=== PATIENT | female | born 1975 | race Hispanic/Latino ===

== ENCOUNTER 2017-07-01 02:23 | Inpatient (IN) | payer SELFPAY ==
[2017-07-01] MEDS ORDERED: Ketorolac Tromethamine 60 MG/2 ML VIAL ONE (02:45)
[2017-07-01] MEDS ORDERED: HYDROcodone/Acetaminophen 5/325 mg Tablet ONE (02:45)
[2017-07-01 03:50] LABS: #Basophils 0.1 thou/uL (0.0-0.2); #Eosinphils 0.2 thou/uL (0.0-0.7); #Lymphocytes 3.9 thou/uL (1.20-3.40); #Monocytes 0.8 thou/uL (0.11-0.59); #Neutrophils 8.6 thou/uL (1.40-6.50); %Basophils 0.8 % (0.0-1.0); %Eosinophils 1.5 % (0.0-10.0); %Lymphocytes 28.5 % (21.0-51.0); %Monocytes 6.2 % (0.0-10.0); Mean Corpuscular HGB CONC 32.5 g/dL (32.0-36.0); Mean Corpuscular Hemoglobin 31.4 pg (27.0-31.0); Mean Corpuscular Volume 96.7 fl (81.0-99.0); Mean Platelet Volume 9.5 fL (7.4-10.4); Platelet Count 207 thou/uL (130-400); RBC Distribution Width 13.6 % (11.5-14.5); Red Blood Cell (RBC) Count 3.83 mill/uL (4.20-5.40); White Blood Cell (WBC) Count 13.6 thou/uL (4.8-10.8)
[2017-07-01 04:11] LABS: ALT (SGPT) 55 U/L (8-55); AST (SGOT) 68 U/L (5-34); Albumin 3.4 g/dL (3.5-5.0); Alcohol 198 mg/dL (Less than 10); Alkaline Phosphatase 60 U/L (40-150); Anion Gap 13 mmol/L (10-20); BUN (Urea Nitrogen) 12 mg/dL (7.0-18.7); Bilirubin, Total 0.2 mg/dL (0.2-1.2); Calc. Creatinine Clearance 0 mL/min (70-130); Calcium 8.2 mg/dL (7.8-10.44); Carbon Dioxide 17 mmol/L (22-29); Chloride 110 mmol/L (98-107); Estimated GFR-MDRD 80; Glucose 139 mg/dL (70-105); Potassium 3.6 mmol/L (3.5-5.1); Protein, Total 6.4 g/dL (6.0-8.3); Sodium 136 mmol/L (136-145)
[2017-07-01] MEDS ORDERED: Sodium Chloride 0.9% 1,000 ML IV SCH (05:18)
[2017-07-01] MEDS ORDERED: Dextrose 5% in Water 1,000 ML IV PRN (05:19)
[2017-07-01] MEDS ORDERED: Ondansetron HCl/PF 4 MG/2 ML Vial IVP PRN (05:19)
[2017-07-01] MEDS ORDERED: Dextrose 50% Abboject 50 ML SYRINGE SLOW IVP PRN (05:19)
[2017-07-01] MEDS ORDERED: Ondansetron ODT 4 MG TAB PO PRN (05:19)
[2017-07-01] MEDS ORDERED: hydrALAZINE 20 MG/ML VIAL SLOW IVP PRN (05:19)
[2017-07-01] MEDS ORDERED: Promethazine HCl 25 MG/ML VIAL IM PRN (05:19)
[2017-07-01] MEDS: Oxazepam 10 MG CAP PO SCH ×4 (05:41→23:56)
[2017-07-01] MEDS: Ketorolac Tromethamine 30 MG/ML VIAL IVP SCH ×4 (05:41→23:56)
[2017-07-01] MEDS: Morphine 4 MG/ML Carpuject SLOW IVP PRN ×4 (05:42→21:30)
[2017-07-01] MEDS: Sodium Chloride 0.9% 1,000 ML IV SCH ×2 (05:43→15:04)
[2017-07-01 07:56] VITALS: BMI 29.9
[2017-07-01] MEDS ORDERED: HYDROcodone/Acetaminophen 10/325 mg Tablet PO PRN (07:57)
--- NOTE | 2017-07-01 08:08 | HP ---
DATE OF ADMISSION: 07/01/2017 ATTENDING PHYSICIAN: Dr. Ng. CONSULTING PHYSICIAN: Dr. Katz. CHIEF COMPLAINT: Evaluation status post fall. HISTORY OF PRESENT ILLNESS: This is a 41-year-old female who was heavily intoxicated, presents to [facility] ED with complaint of left arm pain, she stated that she fell down from the stairs probably 10 minut es ago and then fell onto concrete on the left elbow. Patient reported left elbow pain, reported hea vily intoxicated alcohol use this evening. Unknown LOC, does appear to have some ecchymosis in the p eriorbital region on the right eye. PAST MEDICAL HISTORY: She denies any current medical history. PAST SURGICAL HISTORY: Includes tubal ligation, appendectomy, cholecystectomy, tonsillectomy. PSYCH HISTORY: None diagnosed at this time. SOCIAL HISTORY: She does use tobacco, smokes cigarettes daily 1 pack per day. She reports heavy alc ohol use on weekends, but none during the week. She denies any drug use. REVIEW OF SYSTEMS: All 10 systems reviewed otherwise stated in HPI were negative. PHYSICAL EXAMINATION: VITAL SIGNS: Blood pressure 129/82, heart rate 105, respiratory rate 18, 95% on room air. HEENT: Atraumatic, normocephalic. There appeared to be periorbital right-sided ecchymosis. No scal p hematoma noted. Pupils are 3 mm bilaterally and equal. NECK: No JVD, no masses. Trachea is midline. Cervical spine is nontender. RESPIRATORY: Clear bilaterally via auscultation. CARDIOVASCULAR: S1, S2, regular rate and rhythm. ABDOMEN: Soft, nontender, nondistended. BACK: Unremarkable. EXTREMITIES: Left upper extremity, left distal humerus tenderness, radial head tenderness, no obviou s deformity at this time. Upon my exam, the left upper extremity was already splinted, right upper e xtremity is limited injury, bilateral lower extremities removing without injury. Positive pulses kenton aterally. No edema. NEURO: GCS of . SKIN: Warm and dry. LABORATORY DATA: Laboratories findings are pending. RADIOLOGIC FINDINGS: Supracondylar fracture, comminuted. ASSESSMENT AND PLAN: 1. Status post fall from a supracondylar fracture. 2. Acute traumatic pain. Plan will be observation to the surgical floor for pain management, evaluation for orthopedic treatme nt. Remainder n.p.o. at this time with some ice chips and then some small sips of water. She will c ontinue IV fluids, pain management, DOA signs of withdrawal. Initiate DVT and gastritis prophylaxis when appropriate. Dr. Katz will be contacted and asked to see this patient as well. Dr. Ng has been notified and agrees with the above plan.
--- NOTE | 2017-07-01 08:20 | CON ---
DATE OF CONSULTATION: 07/01/2017 CONSULTING PHYSICIAN: Dr. Bon Katz HISTORY: We were asked by Trauma in the ER to see the patient. The patient had her first bout of ET OH use ever last night. Unfortunately, fell landing on her left elbow and causing a significant disp laced comminuted fracture. The patient in a substantial amount of pain, but denies any numbness, tin gling further down the arm. She also has some ecchymosis about the right eye, but otherwise is doing okay. Dr. Katz and I looked at the images this morning and I informed the patient we need to ge t a CAT scan for better anatomical views of the bone for repair. The patient understands. The patie nt otherwise states she is healthy and has no chronic health issues. PAST MEDICAL HISTORY: Healthy. PAST SURGICAL HISTORY: Tubal ligation, appendectomy, tonsils and cholecystectomy. SOCIAL HISTORY: Smokes approximately a pack a day. Denies alcohol use until last night. No drug us e. Family is in the room. CURRENT MEDICATIONS: None. ALLERGIES: No known drug allergies. REVIEW OF SYSTEMS: Healthy just complains of significant left elbow pain. PHYSICAL EXAMINATION: GENERAL: Well-nourished female resting in bed in no acute distress, family at bedside. Speech clear . Answers questions appropriately, is alert and oriented x3. HEENT: Some ecchymosis about the right eye, but is able to open eye fully. Both eyes tracking well. No visual discrepancy complaints. NECK: Supple. Trachea midline. EXTREMITIES: Right upper extremity normal findings. Left upper extremity is splinted, but she is ab le to move her fingers and has good sensations all of her digits, warm to the touch. Cap refill is q uite to both upper extremities. Moving that upper arm, though, it does cause her a significant amoun t of pain even though it is splinted and she is in a sling. Lower extremity exam, no positive findin gs. ASSESSMENT: Left elbow fracture, comminuted. PLAN: I spoke with patient. We will get her consented for surgery tomorrow. Dr. Katz would like a CAT scan of the elbow. Once that is completed, we will formulate a surgical plan for patient. Brandy blank knows the risks and benefits as I have explained them for an ORIF of left elbow and she has given v erbal authorization to go forth with that surgery. We will let her eat today and plan on doing surge ry tomorrow. Changed her pain medications around a little bit, get some ice on that arm, keep her ar m in a sling.
--- NOTE | 2017-07-01 08:34 | RAD ---
LEFT ELBOW 2 VIEWS: Date: 07/01/17 HISTORY: 41-year-old female with left elbow fracture following reduction with splint material. FINDINGS: Limited 2 view study demonstrates a very markedly comminuted, very markedly displaced fracture of the distal humerus, with severe dorsal displacement and overriding of the major distal humerus fracture fragments, with worse displacement and overriding when compared to the prereduction study of 07/01/17 . IMPRESSION: Severely displaced, malaligned, comminuted distal humeral fracture with marked posterior displacement and foreshortening of the major distal humeral fracture fragments, worse than on the prereduction st udy. POS: [facility]
--- NOTE | 2017-07-01 08:36 | RAD ---
LEFT ELBOW 2 VIEWS: Date: 07/01/17 HISTORY: 41-year-old female with left elbow injury following a fall. FINDINGS: There is a very severely comminuted, displaced, malaligned fracture of the distal humerus with marked dorsal angulation and dorsal displacement and foreshortening of the major distal fragments, particul stew the more medial component, with severe overriding and malalignment. IMPRESSION: Marked displaced, angulated, comminuted distal humeral fracture. POS: [facility]
--- NOTE | 2017-07-01 08:50 | PRG ---
DATE OF SERVICE: 07/01/2017 Please see Chepe Rodriguez's note for full details. SUBJECTIVE: Briefly, Ms. Cannon had a fall and left elbow fracture, partially reduced in the emergen cy room. She is going to be seen by the Orthopedic Service for definitive management today. PHYSICAL EXAMINATION: GENERAL: No acute distress. VITAL SIGNS: Afebrile, vital signs are stable. ABDOMEN: Soft. CHEST: Clear. ASSESSMENT: Left elbow fracture. PLAN: Per Ortho.
[2017-07-01] MEDS: Thiamine HCl 200 MG/2 ML VIAL SLOW IVP SCH (09:09)
[2017-07-01] MEDS: Folic Acid 1 MG TAB PO SCH (09:09)
[2017-07-01] MEDS: Famotidine/PF 20 mg/2ml Vial SLOW IVP SCH ×2 (09:10→21:20)
--- NOTE | 2017-07-01 09:21 | CT ---
PRELIMINARY REPORT/[facility]/EMERGENCY AFTER HOURS PROCEDURE: EXAM: CT Head Without Intravenous Contrast CLINICAL HISTORY: 41 years old, female; Injury or trauma; Fall; Initial encounter; Abrasion; Forehead; Patient HX: Er 9 ; 41 yo f pt states she fell down stairs x10 minutes ago and fell onto concrete on l elbow. Reports E FRITZ марина; Additional info: *pt uncooperative for exam TECHNIQUE: Axial computed tomography images of the head/brain without intravenous contrast. COMPARISON: No relevant prior studies available. FINDINGS: No definite acute skull fracture. Included paranasal sinuses are essentially clear. No acute intracranial hemorrhage or mass effect. Ventricle size is normal for age. No definite acute infarct by CT. IMPRESSION: No acute intracranial bleed or mass effect. Thank you for allowing us to participate in the care of your patient. Dictated and Authenticated by: Sebastien Steve MD 07/01/2017 4:56 AM Central Time ([place] & [place]) FINAL REPORT EMERGENCY AFTER HOURS BRAIN CT WITHOUT IV CONTRAST: Date: 07/01/17 Time: 0411 hours COMPARISON: 10/14/07. IMPRESSION: No acute intracranial process. No mass or bleed. Minimal motion artifact. Report in agreement with preliminary report given on-call by Sonny. POS: [facility]
--- NOTE | 2017-07-01 10:13 | CT ---
LEFT ELBOW CT SCAN WITHOUT IV CONTRAST: Date: 07/01/17 HISTORY: 41-year-old female for left elbow fracture evaluation. COMPARISON: Plain film examination from 07/01/17. FINDINGS: There is an extensively comminuted distal humeral fracture involving the distal humeral metaphysis wi th extension into the elbow joint with a central vertical component. There is extensive comminution. There is marked posterior displacement, malalignment, and foreshortening of the major distal fragment /fragments, including a prominent medial sided fragment extending cranially. No radial or ulnar dislo cation. IMPRESSION: Extensively posteriorly displaced and foreshortening comminuted fracture of the distal humeral metadi aphysis with vertical extension into the elbow joint. POS: [facility]
--- NOTE | 2017-07-01 13:29 | CON ---
DATE OF CONSULTATION: 07/01/2017 CHIEF COMPLAINT: Left elbow pain. HISTORY OF PRESENT ILLNESS: Ms. 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 The patient had a fall and a fracture, was see n by Thom Stein, my PA as well as admitted by Trauma overnight. The patient has a left femoral f racture. I saw the patient at bedside. History as per preHPI and Thom Stein. PHYSICAL EXAMINATION: The patient had a splint clean, dry, and intact. She is sensate intact with b risk cap refill. She has got motion intact to AI, PI and median, ulnar, and radial distributions. S ensation is intact in radial distribution. The patient has no significant bruising and CT scan shows a comminuted intra-articular distal humerus fracture of left elbow with intercondylar split and some comminution noted what appears to be capitellum with comminution on the medial and lateral column. IMPRESSION: Left intercondylar supracondylar humerus fracture. ASSESSMENT AND PLAN: I discussed with the patient that likely we would need to perform open reductio n internal fixation of her left elbow. I discussed the potential need for olecranon osteotomy to exp ose the joint and get the best anatomic reduction. I discussed the risks and benefits of surgery to include pain, scar, bleeding, infection, damage to vital structures, decreased range of motion or str ength, failure of procedure, continued pain despite surgical intervention. The patient understood th baudilio risks. She understands the risk of nonunion, malunion. She understands that she needs to stop s moking, which we discussed to improve her outcome of healing as well as the overall range of motion. I discussed she will be stiff after this surgery. I discussed the risk of damage to nerves. The pat misa understands this. We will plan to proceed with surgery tomorrow morning after she recovered fro m dehydration from alcohol intoxication.
[2017-07-02] MEDS: Sodium Chloride 0.9% 1,000 ML IV SCH ×3 (00:03→18:24)
[2017-07-02] MEDS: Ketorolac Tromethamine 30 MG/ML VIAL IVP SCH ×3 (05:58→18:24)
[2017-07-02] MEDS: Oxazepam 10 MG CAP PO SCH ×3 (06:03→18:25)
[2017-07-02] MEDS ORDERED: Midazolam HCl 2 mg/2 ml Vial ONE (07:51)
[2017-07-02] MEDS ORDERED: Fentanyl 100 MCG/2 ML VIAL ONE ×3 (07:51→13:01)
[2017-07-02] MEDS ORDERED: CEFAZOLIN/Water 2 GM/20 ML SYRINGE ONE (07:55)
[2017-07-02] MEDS: Famotidine/PF 20 mg/2ml Vial SLOW IVP SCH (08:18)
[2017-07-02] MEDS: Folic Acid 1 MG TAB PO SCH (08:18)
[2017-07-02] MEDS: Thiamine HCl 200 MG/2 ML VIAL SLOW IVP SCH (08:19)
[2017-07-02] MEDS ORDERED: Promethazine HCl 25 MG/ML VIAL SLOW IVP PRN (12:37)
[2017-07-02] MEDS ORDERED: Promethazine HCl 25 MG/ML VIAL IM PRN (12:37)
[2017-07-02] MEDS ORDERED: Ondansetron HCl/PF 4 MG/2 ML Vial IVP PRN (12:37)
--- NOTE | 2017-07-02 12:57 | RAD ---
LEFT ELBOW: Date: 07/02/17 HISTORY: 41-year-old female status post open reduction and internal fixation left elbow. FINDINGS: Multiple (5) portable fluoroscopic spot images are presented for interpretation. There are medial and lateral metal plate and screws stabilizing the markedly comminuted and displaced distal humeral frac ture. There is also internal fixation screw stabilizing the ulna/olecranon region. Marked improvement in position and alignment of the comminuted distal humeral fracture fragments when compared to the p rior study. IMPRESSION: Prominent metal plate and screws stabilizing the medial and lateral aspect of the distal humeral kenton edly comminuted and displaced fracture with marked improvement in position and alignment. Internal fi xation screw stabilizing the olecranon of the ulna. POS: [facility]
[2017-07-02] MEDS ORDERED: CEFAZOLIN 2 GM in Sodium Chloride 0.9% 100 ML IVPB SCH (14:00)
[2017-07-02] MEDS: Morphine 4 MG/ML Carpuject SLOW IVP PRN (14:08)
[2017-07-02] MEDS ORDERED: Ondansetron HCl/PF 4 MG/2 ML Vial ONE (14:30)
[2017-07-02] MEDS ORDERED: Lidocaine 1% PF 5 ML VIAL ONE (14:30)
[2017-07-02] MEDS ORDERED: PROPOFOL 200 MG/20 ML VIAL ONE (14:30)
[2017-07-02] MEDS ORDERED: diphenhydrAMINE 50 MG/ML VIAL ONE (14:30)
[2017-07-02] MEDS ORDERED: Dexamethasone 20 MG/5 ML VIAL ONE (14:30)
[2017-07-02] MEDS: CEFAZOLIN/Water 2 GM/20 ML SYRINGE SLOW IVP SCH (16:15)
[2017-07-02] MEDS: HYDROcodone/Acetaminophen 10/325 mg Tablet PO PRN ×2 (16:15→21:01)
--- NOTE | 2017-07-02 19:33 | PRG ---
DATE OF SERVICE: 07/02/2017 ATTENDING PHYSICIAN: Dr. Praveen Ng. SUBJECTIVE: Ms. Cannon is a 41-year-old female who had a fall and sustained a left elbow fracture. She was seen this afternoon on returning from the OR, status post ORIF of left elbow fracture. Pain is controlled with oral analgesia. OBJECTIVE: VITAL SIGNS: Temperature 97.7, pulse 66, respirations 18, O2 saturation 98% room air, blood pressure 155/85. GENERAL: A 41-year-old female sitting up in bed, in no acute distress. PULMONARY: Bilateral breath sounds clear. No respiratory distress. CARDIOVASCULAR: Heart sounds normal. Regular rate and rhythm. ABDOMEN: Soft, nontender, nondistended. EXTREMITIES: Left upper extremity with splint. Neurovascularly intact. Cap refill brisk. No trauma noted. NEUROLOGIC: GCS 15, awake, alert, oriented x3. ASSESSMENT: 1. Status post ground level fall. 2. Status post open reduction internal fixation left elbow fracture. PLAN: 1. Continue current care as ordered. 2. Continue oral analgesia. 3. IV antibiotics per Orthopedic Service. 4. Anticipate home in a.m. as long as pain stays well controlled. 5. Pepcid for PUD prophylaxis. The patient was reviewed with Dr. Ng, attending surgeon, who agrees with the assessment and plan. MTDD
[2017-07-02] MEDS: Famotidine 20 MG TAB PO SCH (21:06)
[2017-07-02] MEDS: Ibuprofen 600 MG TAB PO PRN (22:08)
--- NOTE | 2017-07-02 22:15 | OP ---
DATE OF PROCEDURE: 07/02/2017 PREOPERATIVE DIAGNOSES: Left distal humerus fracture with an intercondylar split in-between the capitellum and trochlea with comminution in the metaphysis near the olecranon coronoid fossa. POSTOPERATIVE DIAGNOSES: Left distal humerus fracture with an intercondylar split in-between the capitellum and trochlea with comminution in the metaphysis near the olecranon coronoid fossa. PROCEDURES PERFORMED: 1. Open reduction distal humerus fracture with intercondylar split. 2. Olecranon osteotomy. 3. Ulnar nerve transposition. 4. Long arm splint STAFF: Bon Katz M.D. [employer]2EE ANDROID DEVELOPER: Thom Stein PA-C ANESTHESIA: General endotracheal intubation. ESTIMATED BLOOD LOSS: 100 mL TOURNIQUET TIME: 127 minutes at 250 mmHg. The patient had 1900 mL of IV fluids in and 200 cc UOP IMPLANTS: VA-LCP 4-hole long plate and a 2.7/3.5 LCP 5-hole long medial and lateral plates. The patient had six 3.5 screws implanted. The patient had one 6.5 screw that was in and out. The patient had a washer. She had 7 total of 2.7 screws implanted and had a 19 mm x 6.5 mm cannulated screw inserted, and Synthes implants. COMPLICATIONS: None. HISTORY OF PRESENT ILLNESS: Ms. Cannon is a 41-year-old female who presented to me after she became intoxicated and falling breaking her distal humerus. I discussed with the patient severity of this injury. I discussed with patient the risks and benefits of surgery to include pain, scar, bleeding, infection, damage to vital structures, decreased range of motion or strength, failure of procedure and continued pain despite surgical intervention, arthritis, infection , heterotopic ossification, damage to nerves, arteries and tendons, failure of the procedure, continued pain, nonunion, malunion, need for further surgeries, loss of life or limb. The patient understood the risks and benefits and elected to proceed. DESCRIPTION OF PROCEDURE: Time out was performed designating the patient's left upper extremity as the operative site based on site, consents, and markings. After completion of timeout, the patient had been placed in lateral decubitus position with her bony prominences well padded. The patient had a Jenkins placed. The patient's arm was rolled over onto a bump and we exposed her x -ray guidance. We then made a posterior midline incision down through skin, created skin flaps medially and laterally. At first, we found the ulnar nerve finding the plane of the triceps and came down exposed the ulnar nerve and released it through the fascia distally of the FCU. I then exposed the medial aspect of the humerus and came down on bone and elevating posteriorly to help expose the patient's medial epicondyle for placement of the plate. We then moved laterally and found the epicondyle and anconeus split and came down through the anconeus split, started palpate down to the triceps through we developed a plane and found our subtricipital plane, came across proximally to distally. We opened up and we bluntly dissected the patient's proximal to distal plain using blunt dissection proximally, staying out of bone to ensure no damage to the patient's posterior interosseous nerve. I exposed both medial and lateral columns. I attempted at first reduction and pinning, but there was an area of some comminution, but because the comminution was small, little pieces, it could not be perfectly felt that an osteotomy perform. Therefore, under fluoroscopic guidance, we found what appeared to be a bare spot, and we drilled and put a guidewire for six 3 screws down the ulna. With AP and lateral radiographs, we then tapped, removed and we made ostomy cut and I then tried to do wedge osteotomy for osteotomy cut. We then took an anconeus flap, connected to the triceps laterally and exposed down to the distal humerus. We also capsular tissues medially leaving a space for sewing over and if needed leave the nerve back in the screw. We then exposed the distal humerus completely. We started by attaching the capitellum and trochlea pieces together with a point to point reduction. We placed a guidewire across the spool. We then reduced that to a medial fragment that we had positioned into place and used the lateral fragment to help and find our positioning. I felt we had placed several guidewires to pin it into place, but ultimately had used our lateral plate to help with positioning of our humerus. After we pinned into place and clamped across, we placed 4 guidewires into the lateral column. We then used this in the medial guide reference to place our medial clamp and medial plate and placed guidewires across it. I had placed one screw 3.5 in the shaft of the lateral plate and hold it into place, keep it stable before I place the medial plate down. With this, I ensured with C-arm radiograph the positioning of the plate and screws. I then sequentially placed screws medial and lateral through the intercondylar split distally, obliquely trying to stay out of the articular surface checking both visually as well as under radiographic visualization to ensure the screws were out of the joint. We removed the thread and has reimplant and remove hardware removal set. Being happy with a total of 3 long screws laterally, 2 long screws medially, and 1 small screw, we then elected to move to our proximal shaft. We placed 3 screws alternating proximally to help the interdigitate some into the plate from medial and lateral. We protect the radial nerve as well the ulnar nerve during our dissection. Being happy with the look, we removed the remainder of the K- wires. I took pictures under AP and lateral radiographs that showed nice arc of motion, full flexion, full extension. I was happy with the position in the plate. I then washed. We put a guidewire for 6.5 screw. We had already tapped the washer and compressed the fracture and put the olecranon osteotomy into place. We then sewed the anconeus flap down back into its place with 0 Vicryl, closed the lateral soft tissues of the plate with 0 Vicryl. We removed and closed up the interval paying attention the superficial nerve branch to the radial nerve. We then just only getting fascia. We then moved medially. We transposed the patient's medially. We reapproximated all the tissues and the nerve was tenting on the plate and I did not like the position of the nerve, so therefore, I made a subcutaneous plane in the fat. I used the fat to cover over the remainder of the plate and made sure the FCU was released and all the fascia was released, so that the nerve would fit anterior to the epicondyle in a fat plane. I then closed the skin with 2-0 marnie. The patient was placed in a posterior splint. The patient will be admitted back to the hospital, will be discharged home today if her pain is controlled. The patient received a block once exam was performed. PHILOMENA
[2017-07-03] MEDS: Oxazepam 10 MG CAP PO SCH ×2 (00:41→06:11)
[2017-07-03] MEDS: CEFAZOLIN/Water 2 GM/20 ML SYRINGE SLOW IVP SCH (00:41)
[2017-07-03] MEDS: HYDROcodone/Acetaminophen 10/325 mg Tablet PO PRN ×3 (00:51→10:57)
[2017-07-03] MEDS: Ibuprofen 600 MG TAB PO PRN (09:40)
[2017-07-03] MEDS: Folic Acid 1 MG TAB PO SCH (09:40)
[2017-07-03] MEDS: Famotidine 20 MG TAB PO SCH (09:40)
[2017-07-03 11:35] VITALS: BP 128/83; TEMP 98
--- NOTE | 2017-07-03 16:12 | DIS ---
DATE OF ADMISSION: 07/01/2017 DATE OF DISCHARGE: 07/03/2017 ADMITTING PHYSICIAN: Dr. Sebastien Ng. CONSULTING PHYSICIAN: Dr. Bon Katz, Orthopedics REASON FOR HOSPITALIZATION: Ground level fall with left elbow pain. HOSPITAL DIAGNOSES: 1. Left elbow fracture, comminuted. 2. Acute alcohol intoxication. PROCEDURES: Date; 07/02/2017. Surgeon; Dr. Bon Katz. Procedures; ORIF distal humerus fracture. Please refer to Dr. Katz's complete operative note for details. BRIEF HISTORY OF HOSPITALIZATION: The patient is a 41-year-old female who apparently was in an intoxicated state when she had a fall landing on her left elbow. She also sustained a contusion to her right orbital area. She was transported to [facility] where a left comminuted elbow fracture was identified. She was admitted to the hospital by Trauma Services. Dr. Katz, Orthopedics, was consulted. He took the patient to the OR for ORIF of the left elbow. The following day, the patient was tolerating a regular diet. She was mobile with physical and occupational therapy. She was evaluated by Social Work to ensure safe DC plan. She may follow up with Dr. Katz. There is no need for her to follow up with Trauma Services. She was given follow up information, discharge instructions, and return precautions. The patient was seen and examined with Dr. Powell, attending trauma surgeon, who agrees with assessment and plan for discharge. PHILOMENA
--- NOTE | 2017-07-15 19:59 | EKG ---
Test Reason : Blood Pressure : / mmHG Vent. Rate : 110 BPM Atrial Rate : 110 BPM P-R Int : 158 ms QRS Dur : 090 ms QT Int : 360 ms P-R-T Axes : 061 019 055 degrees QTc Int : 487 ms Sinus tachycardia Otherwise normal ECG Confirmed by TRINITY MOLINA, ADAL Christensen ([id number]), web editor MIGUEL SOLOMON ([id number]) on 07/15/2017 7:59:01 PM Referred By: TRINITY Confirmed By:ADAL PETERSEN MD
== END 2017-07-03 12:38 | disposition home or self-care (01) | DRG 494 ==
LOC: ERS 02:23 → SURG A 04:25 → EEVIPCON 04:25 → OBSVTOIN 04:25
PROVIDERS: ADMIT Surgery; ATTEND Surgery
PROC: 0PSG04Z Reposition Left Humeral Shaft with Internal Fixation Device, Open Approach (ICD-10-PCS; principal; 2017-07-02)
PROC: 01S40ZZ Reposition Ulnar Nerve, Open Approach (ICD-10-PCS; 2017-07-02)
DX: S42.492A Other displaced fracture of lower end of left humerus, initial encounter for closed fracture (principal); F10.129 Alcohol abuse with intoxication, unspecified; F17.210 Nicotine dependence, cigarettes, uncomplicated; S05.11XA Contusion of eyeball and orbital tissues, right eye, initial encounter; W10.9XXA Fall (on) (from) unspecified stairs and steps, initial encounter
CPT/HCPCS: 24535; 36415; 70450; 76001; 80053; 80307; 85025; 93005; 94760; 96360; 99152; 99406; A4216; C1713; C1769; J1100; J1170; J1200; J1885; J2001; J2250; J2270; J2405; J2704; J3010; J3411; S0028

== ENCOUNTER 2018-03-04 12:07 | Emergency (ER) | payer SELFPAY ==
[2018-03-04] MEDS ORDERED: Lidocaine Viscous Sol 2% 15 ml UD Cup ONE (12:32)
[2018-03-04] MEDS ORDERED: Milk Of Magnesia 30 ML UDCUP ONE (12:32)
[2018-03-04] MEDS ORDERED: Ondansetron HCl/PF 4 MG/2 ML Vial ONE (12:32)
[2018-03-04 12:48] LABS: Anisocytosis SLIGHT = 6-15 cells (100X) (0-5/hpf); Band 4 % (5-11); Eosinophils 1 % (0-10); Hemoglobin 12.6 g/dL (12.0-16.0); Lymphocytes 9 % (21-51); MDiff Complete? YES; Mean Corpuscular HGB CONC 33.1 g/dL (32.0-36.0); Mean Corpuscular Hemoglobin 28.4 pg (27.0-31.0); Mean Corpuscular Volume 85.8 fL (78.0-98.0); Mean Platelet Volume 12.5 fL (7.4-10.4); Monocytes 5 % (0-10); Neutrophil 81 % (42-75); PLT Morphology Comment Appears Adequate; Platelet Count 186 thou/uL (130-400); Red Blood Cell (RBC) Count 4.44 mill/uL (4.20-5.40); Target Cells SLIGHT = 2-5 cells (100X) (0-1/hpf); White Blood Cell (WBC) Count 14.1 thou/uL (4.8-10.8)
[2018-03-04 12:53] LABS: ALT (SGPT) 14 U/L (8-55); AST (SGOT) 15 U/L (5-34); Alkaline Phosphatase 83 U/L (40-150); Anion Gap 13 mmol/L (10-20); BUN (Urea Nitrogen) 9 mg/dL (7.0-18.7); Bilirubin, Total 0.4 mg/dL (0.2-1.2); CK (CPK) 45 U/L (29-168); CKMB 0.6 ng/mL (0-6.6); Calc. Creatinine Clearance 0 mL/min (70-130); Carbon Dioxide 21 mmol/L (22-29); Chloride 106 mmol/L (98-107); Estimated GFR-MDRD 86; Globulin 2.8 g/dL (2.4-3.5); Glucose 120 mg/dL (70-105); Lipase 33 U/L (8-78); Potassium 4.1 mmol/L (3.5-5.1); Protein, Total 6.8 g/dL (6.0-8.3); Sodium 136 mmol/L (136-145); Troponin I Less than 0.010 ng/mL (< 0.028)
[2018-03-04] MEDS ORDERED: Pantoprazole 40 MG VIAL ONE (13:11)
--- NOTE | 2018-03-04 13:14 | CT ---
CT OF THE ABDOMEN AND PELVIS WITHOUT CONTRAST: DATE: 03/04/18. PROVIDED CLINICAL HISTORY: Epigastric pain. FINDINGS: The visualized lung bases are free of significant opacity. Changes of prior cholecystectomy and appendectomy are noted. There is a 2-3 mm nonobstructing inferi or pole right renal calculus. The solid abdominal organs are suboptimally evaluated in the absence o f IV contrast material but demonstrate an otherwise unremarkable unenhanced CT appearance. There is no bowel dilatation, inflammatory fat stranding, or free air apparent. There is trace free pelvic fluid which may be physiologic in nature. The osseous structures demonstrate no evidence for osteoblastic or osteolytic lesions. IMPRESSION: 1. Trace likely physiologic free pelvic fluid. 2. Nonobstructing inferior pole right renal calculus. POS: [facility]
[2018-03-04] MEDS ORDERED: Morphine 4 MG/ML VIAL ONE (13:36)
[2018-03-04 15:22] LABS: Bilirubin Negative (Negative); Blood, Urine Trace (Negative); Clarity Slightly Cloudy (Clear); Glucose, Urine (Dipstick) Negative (Negative); Leukocyte Negative (Negative); Nitrite Positive (Negative); Protein, Urine (Dipstick) Negative (Neg-Trace); Urobilinogen 0.2 mg/dL (0.2-1.0)
[2018-03-04 15:23] LABS: RBC/HPF 0-3 HPF (0-3); Squamous Epithelial 0-3 HPF (0-3); WBC/HPF 0-3 HPF (0-3)
[2018-03-04 15:24] LABS: Bacteria/HPF 1+ HPF (None Seen)
[2018-03-04 15:27] LABS: Pregu Control Background? CLEAR/WHITE (CLR/WHITE); Pregu Control Bar Appear? YES (CONTROL BAR)
[2018-03-04 15:28] LABS: Pregnancy Test - Urine (BHCG) Negative (Negative)
== END 2018-03-04 15:24 | disposition home or self-care (01) ==
LOC: SCSER 12:07
DX: K29.70 Gastritis, unspecified, without bleeding (principal); F17.210 Nicotine dependence, cigarettes, uncomplicated
CPT/HCPCS: 74176; 80053; 81003; 81015; 81025; 82550; 82553; 83690; 84484; 85025; 87077; 87086; 87186; 93005; 96361; 96374; 96375; 96376; C9113; J2270; J2405

== ENCOUNTER 2019-01-06 21:28 | Emergency (ER) | payer SELFPAY ==
--- NOTE | 2019-01-06 22:21 | RAD ---
LEFT ELBOW FOUR VIEWS: 01/06/2019 HISTORY: Fall. Trauma. Pain. FINDINGS: There is extensive postoperative hardware associated with the distal left humerus, medially and later ally. There is also extensive postoperative hardware involving the proximal ulna. There is no evide nce for hardware failure. Incidental note is one of the screws associated with the medial screw and plate fixation of the dista l left humerus is fractured with minimal displacement. This hardware treats a distal left humerus fr acture. No significant elbow joint effusion. No acute fracture or dislocation. IMPRESSION: 1. Extensive postoperative hardware. 2. No evidence for acute fracture or dislocation. 3. The distal-most medial humeral fixation screw is fractured but demonstrates no significant displa cement. POS: [facility]
== END 2019-01-06 22:27 | disposition home or self-care (01) ==
LOC: SCSER 21:28
DX: S50.02XA Contusion of left elbow, initial encounter (principal); W19.XXXA Unspecified fall, initial encounter

== ENCOUNTER 2019-03-26 09:43 | Emergency (ER) | payer SELFPAY ==
[~2019-03-26 09:43] MED LIST: Iopamidol 370 76% 100 ML VIAL ONE
[2019-03-26 10:48] LABS: Hemoglobin 11.9 g/dL (12.0-16.0); Mean Corpuscular HGB CONC 31.6 g/dL (32.0-36.0); Mean Corpuscular Hemoglobin 27.8 pg (27.0-31.0); Mean Corpuscular Volume 87.9 fL (78.0-98.0); Mean Platelet Volume 12.4 fL (7.4-10.4); Platelet Count 222 thou/uL (130-400); RBC Distribution Width 15.1 % (11.5-14.5); Red Blood Cell (RBC) Count 4.28 mill/uL (4.20-5.40); White Blood Cell (WBC) Count 7.8 thou/uL (4.8-10.8)
[2019-03-26 10:49] LABS: BHCG - Serum Negative (NEGATIVE); Pregs Control Bar Appear? YES (CONTROL BAR)
[2019-03-26 10:50] LABS: Pregs Control Background? CLEAR/WHITE (CLR/WHITE)
[2019-03-26] MEDS ORDERED: Morphine 4 MG/ML VIAL ONE (10:56)
[2019-03-26] MEDS ORDERED: Ondansetron PF 4 MG/2 ML Vial ONE (10:56)
[2019-03-26 10:58] LABS: #Basophils 0.1 thou/uL (0.0-0.2); #Eosinphils 0.2 thou/uL (0.0-0.7); #Lymphocytes 1.9 thou/uL (1.20-3.40); #Monocytes 0.6 thou/uL (0.11-0.59); %Basophils 1.3 % (0.0-1.0); %Eosinophils 2.5 % (0.0-10.0); %Monocytes 7.9 % (0.0-10.0); %Neutrophils 64.4 % (42.0-75.0)
[2019-03-26 10:59] LABS: ALT (SGPT) 15 U/L (8-55); AST (SGOT) 17 U/L (5-34); Alkaline Phosphatase 86 U/L (40-110); Anion Gap 16 mmol/L (10-20); BUN (Urea Nitrogen) 11 mg/dL (7.0-18.7); Bilirubin, Total 0.3 mg/dL (0.2-1.2); Calc. Creatinine Clearance 0 mL/min (70-130); Calcium 9.4 mg/dL (7.8-10.44); Carbon Dioxide 22 mmol/L (22-29); Chloride 106 mmol/L (98-107); Estimated GFR-MDRD 77; Globulin 3.1 g/dL (2.4-3.5); Glucose 98 mg/dL (70-105); Lipase 29 U/L (8-78); MDiff Complete? YES; Platelet Morphology Comment Appears Adequate; Potassium 4.2 mmol/L (3.5-5.1); Protein, Total 7.1 g/dL (6.0-8.3); Sodium 140 mmol/L (136-145); Stomatocytes SLIGHT = 2-5 cells (100X) (0-1/hpf)
[2019-03-26 11:26] LABS: Bilirubin Negative (Negative); Blood, Urine Moderate (Negative); Clarity Slightly Cloudy (Clear); Glucose, Urine (Dipstick) Negative (Negative); Leukocyte Moderate (Negative); Nitrite Negative (Negative); Protein, Urine (Dipstick) Negative (Neg-Trace); Urobilinogen 0.2 mg/dL (Less than 2)
[2019-03-26 11:30] LABS: Bacteria/HPF 2+ HPF (None Seen); Squamous Epithelial 21-50 HPF (0-3); Trichomonas/HPF 1+ HPF (None Seen)
[2019-03-26] MEDS ORDERED: cefTRIAXone\\ROCEPHIN 1 GM VIAL ONE (11:52)
[2019-03-26] MEDS ORDERED: Sodium Chloride 0.9% 100 ML ONE (11:53)
--- NOTE | 2019-03-26 12:27 | CT ---
CT ABDOMEN AND PELVIS WITH IV CONTRAST 03/26/2019 CLINICAL INFORMATION: Intermittent abdominal pain and vomiting. COMPARISON: Noncontrast CT abdomen and pelvis on 03/04/2018 Technique: Multiple contiguous axial CT images are obtained through the abdomen and pelvis with IV contrast. Cor onal reformatted images are provided. FINDINGS: Lower Chest: Minimal dependent bibasilar atelectasis. Vessels: Abdominal aorta and iliac arteries are normal in caliber. Abdomen: Portal vein:Patent Gallbladder: Surgically absent. Liver: Mild intrahepatic biliary duct dilatation related to reservoir effect from cholecystectomy. Li sierra otherwise has a normal CT appearance. Spleen: within normal limits. Pancreas: within normal limits. Adrenals: within normal limits. Kidneys: within normal limits. Bowel: There is colonic diverticulosis. Loops of small bowel are normal in caliber. Postsurgical christy ges at the cecal apex are noted probably related to prior appendectomy. Peritoneum: No ascites or free air; no fluid collection. Mesentery and Retroperitoneum: No enlarged mesenteric or retroperitoneal lymph nodes. Abdominal Wall: within normal limits. Pelvis: Reproductive Organs: Hypodense structure right adnexa likely due to a follicle. Uterus and left adnex al structures have a normal appearance for patient's age. Pelvis within normal limits. Bladder: within normal limits. Bones: Subchondral cystic appearing changes are seen involving the pubic symphysis bilaterally likely due to degenerative changes. This is stable when compared to the prior exam. No suspicious lytic or sclerotic osseous lesions are identified. IMPRESSION: 1. No acute findings are seen in the abdomen or pelvis. 2. Postcholecystectomy changes. 3. Colonic diverticulosis.
[2019-03-26] MEDS ORDERED: Mag-Al Plus 1200 MG/1200 MG/120 MG/30 ML UDCUP ONE (12:43)
[2019-03-26] MEDS ORDERED: Lidocaine Viscous Sol 2% 15 ml UD Cup ONE (12:43)
== END 2019-03-26 13:00 | disposition home or self-care (01) ==
LOC: SCSER 09:43
DX: N39.0 Urinary tract infection, site not specified (principal); A59.9 Trichomoniasis, unspecified; F17.210 Nicotine dependence, cigarettes, uncomplicated
CPT/HCPCS: 74177; 80053; 81003; 81015; 83690; 84703; 85025; 93005; 96361; 96365; 96375; J0696; J2270; J2405; J3490; Q9967

== ENCOUNTER 2019-03-27 22:06 | Emergency (ER) | payer SELFPAY ==
[2019-03-27] MEDS ORDERED: Metoclopramide HCl 10 MG/2 ML VIAL ONE (23:04)
[2019-03-27] MEDS ORDERED: methylPREDNISolone Sod Succ/PF 125 MG/2 ML VIAL ONE (23:04)
[2019-03-27] MEDS ORDERED: diphenhydrAMINE 50 MG/ML VIAL ONE (23:04)
[2019-03-27] MEDS ORDERED: Ketorolac Tromethamine 30 MG/ML VIAL ONE (23:04)
--- NOTE | 2019-03-27 23:30 | CT ---
CT Brain WO Con History: Headache Comparison: CT brain June 2017 Findings: No acute hemorrhage or infarct. No midline shift or mass effect. Ventricular size and extra -axial CSF spaces are normal. Calvarium is intact. The nasal sinuses and mastoids are clear. Impression: No acute intracranial abnormality.
== END 2019-03-28 00:48 | disposition home or self-care (01) ==
LOC: SCSER 22:06
DX: R51 Headache (principal); F17.210 Nicotine dependence, cigarettes, uncomplicated
CPT/HCPCS: 70450; 96365; 96375; J1200; J1885; J2765; J2930

== ENCOUNTER 2019-09-02 13:13 | Emergency (ER) | payer SELFPAY | END 2019-09-02 14:05 | disposition home or self-care (01) | LOC: ERS 13:13 | DX: B34.9 Viral infection, unspecified (principal); F17.210 Nicotine dependence, cigarettes, uncomplicated | CPT/HCPCS: 99283 ==

== ENCOUNTER 2019-11-19 12:44 | Emergency (ER) | payer SELFPAY ==
[2019-11-19] MEDS ORDERED: diphenhydrAMINE 50 MG/ML VIAL ONE (13:23)
[2019-11-19] MEDS ORDERED: Metoclopramide HCl 10 MG/2 ML VIAL ONE (13:23)
[2019-11-19] MEDS ORDERED: Ketorolac Tromethamine 30 MG/ML VIAL ONE (13:23)
== END 2019-11-19 14:41 | disposition home or self-care (01) ==
LOC: ERS 12:44
DX: R51 Headache (principal); M54.6 Pain in thoracic spine; F17.210 Nicotine dependence, cigarettes, uncomplicated
CPT/HCPCS: 96365; 96375; J1200; J1885; J2765

== ENCOUNTER 2020-04-26 18:04 | Emergency (ER) | payer SELFPAY ==
--- NOTE | 2020-04-26 19:03 | RAD ---
XR Chest Pa Lat STANDARD HISTORY: Cough COMPARISON: 09/08/2014 FINDINGS: The heart size is normal. The lungs are well expanded without focal areas of consolidation, pneumothorax or pleural effusions. IMPRESSION: No radiographic evidence of acute cardiopulmonary process.
[2020-04-27 12:37] LABS: SARS-CoV-2 MS2 Positive; SARS-CoV-2 N Gene Negative; SARS-CoV-2 S Gene Negative; SARS-CoV-2 by NAA Not Detected (NotDetected); SARS-CoV-2 orf1ab Negative
== END 2020-04-26 20:21 | disposition home or self-care (01) ==
LOC: ERS 18:04
DX: J40 Bronchitis, not specified as acute or chronic (principal); Z20.828 Contact with and (suspected) exposure to other viral communicable diseases; G43.909 Migraine, unspecified, not intractable, without status migrainosus; F17.210 Nicotine dependence, cigarettes, uncomplicated
CPT/HCPCS: 71046; 87635; U0003

== ENCOUNTER 2022-06-15 10:12 | Emergency (ER) | payer SELFPAY ==
[2022-06-15] MEDS ORDERED: Acetaminophen 500 MG TAB ONE (11:04)
== END 2022-06-15 11:08 | disposition home or self-care (01) ==
LOC: ERS 10:12
DX: J11.1 Influenza due to unidentified influenza virus with other respiratory manifestations (principal)
CPT/HCPCS: 99283

== ENCOUNTER 2023-04-12 08:33 | Emergency (ER) | payer SELFPAY | END 2023-04-12 09:37 | disposition home or self-care (01) | LOC: ERS 08:33 | DX: S00.83XA Contusion of other part of head, initial encounter (principal); S06.0X0A Concussion without loss of consciousness, initial encounter; I10 Essential (primary) hypertension; F17.210 Nicotine dependence, cigarettes, uncomplicated; W18.30XA Fall on same level, unspecified, initial encounter | CPT/HCPCS: 99283 ==

== ENCOUNTER 2023-05-04 11:47 | Emergency (ER) | payer SELFPAY ==
[2023-05-04 14:34] LABS: SARS-CoV-2 NAA Rapid Test Not Detected (NotDetected)
== END 2023-05-04 14:06 | disposition home or self-care (01) ==
LOC: ERS 11:47
DX: B34.9 Viral infection, unspecified (principal); F17.210 Nicotine dependence, cigarettes, uncomplicated; Z20.822 Contact with and (suspected) exposure to COVID-19
CPT/HCPCS: 99283